=== PATIENT | male | born 1970 | race Two or more races ===

== ENCOUNTER 2024-04-06 13:06 | Outpatient (AMB) | payer MEDICAID, SELFPAY ==
--- NOTE | 2024-04-06 13:25 | ORTHONT_ITS ---
Vital signs 04/06/24 13:26 Height 1.73 m Height Method Stated Weight 110.336 kg Weight Measurement Method Standing Scale BMI 36.8 BP 135/80 H Blood Pressure Source Automatic Cuff Blood Pressure Location Left Upper Arm Position Sitting Respiration 19 Pulse 76 Pulse Source Monitor Temp 98.1 F Temp Source Temporal Artery Scan Pulse Oximetry (%) 94 L Oxygen Delivery Method Room Air Med/Allergies Allergies & Medications Allergies Penicillins Allergy (Severe, Verified 04/06/24 13:26) Rash Medication Reconciliation albuterol sulfate 90 mcg/actuation aerosol inhaler (Proventil HFA) 2 puff inhalation Q6HR PRN SHORTNESS OF BREATH #0 inhalations 08/04/15 [History Confirmed 04/06/24] benazepril 20 mg tablet 20 mg PO BID 08/04/18 [History Confirmed 04/06/24] fluticasone furoate 200 mcg-vilanterol 25 mcg/dose inhalation powder (Breo Ellipta) 1 inh inhalation QDAY 08/04/18 [History Confirmed 04/06/24] pantoprazole 40 mg tablet,delayed release 40 mg PO QDAY 08/04/18 [History Confirmed 04/06/24] atorvastatin 20 mg tablet 20 mg PO QDAY 12/12/23 [History Confirmed 04/06/24] carvedilol 6.25 mg tablet 6.25 mg PO BID 12/12/23 [History Confirmed 04/06/24] doxazosin 8 mg tablet 8 mg PO QDAY 12/12/23 [History Confirmed 04/06/24] meloxicam 7.5 mg tablet 7.5 mg PO QDAY #45 tabs 12/12/23 [Rx Confirmed 04/06/24] Exam Exam Patient is in no acute distress and is cooperative with the examination today. Breathing is nonlabored. Patient has a normal mood and affect. Bilateral extremities were evaluated and demonstrates sensation intact to light touch. Palpable pedal pulses are present. No significant edema is present. Bilateral hips were examined. The patient has no pain with log roll of the hips. Internal rotation to 30 degrees and external rotation to 30 degrees is painless. Negative FADIR. Left knee was examined today. The left knee is in reasonable alignment. Range of motion from 0-120 degrees. Knee is stable to varus and valgus as well as AP translation with <5mm. Patient has a negative McMurrays. There is no pain with patellofemoral compression and no crepitus noted. The knee is nontender to palpation. The right knee was also examined. The right knee is in [varus] alignment. Range of motion from [0-115] degrees. Knee is stable to varus and valgus as well as AP translation with <5mm. Patient has a [negative] McMurrays. There is [no] pain with patellofemoral compression and [no] crepitus noted. The knee is [tender] to palpation [medially]. Nonweightbearing x-rays were reviewed. This demonstrates mild to moderate arthritis. X-rays deferred demonstrates severe arthritis medially these are weightbearing x-rays from [facility] imaging Assessment and Plan Problem List (1) Arthritis of right knee: Status: Acute Plan: Patient is a pleasant 53-year-old male who presents today for evaluation of his right knee. He has significant medial right knee pain. X-rays demonstrate significant arthritis bilaterally. We discussed different treatment options. We discussed that he is on the younger side for a total knee replacement but that he is failed conservative treatment and thus we consider total knee replacement a reasonable option. He would like to start on the right. In addition, we discussed that we can do a left knee cortisone injection as this is the nonoperative side for now. Recommend knee cortisone injection as patient would like to proceed with conservative treatment at this time. The risks and benefits of the procedure were reviewed with the patient and patient gave verbal consent to continue with the procedure. Procedure: performed by Dr. Barrera Using sterile technique the left knee was thoroughly prepped with alcohol, and approximately 1 cc of Kenalog 40 mg/mL and 4 cc of 1% lidocaine was injected without resistance into the medial tibial femoral joint space. The patient tolerated the procedure. The nature and purpose of the total knee replacement, alternative method(s) of treatment, the material risks involved, and the possibility of complications were fully explained to the patient. The patient does NOT have any of the following contraindications to TKA: - Active infection of the knee joint, OR - Active systemic bacteremia, OR - Active skin infection or open wound at surgical site, OR - Neuropathic arthritis, OR - Severe, rapidly progressive neurological disease, OR - Severe medical condition that makes risks of surgery outweigh the potential benefit The patient was told the most common risks and complications associated with a total knee replacement include, but are not limited to: blood clots in the leg, fatal pulmonary embolism, dislocation of the prosthesis, intraoperative and postoperative fractures of the femur or tibia, infection, failure of the prosthesis or grafting materials, complications from anesthesia, reactions to blood transfusions, postoperative leg length inequality, instability of the knee replacement, nerve damage or injury, vascular injury, delayed wound healing, infection, other injury or even . In addition, there are risks associated with anesthesia given during this operation. Also, the patient was told that after undergoing a total knee replacement there may still be persistent pain or disability. The patient was informed that the success of this operation in part depends upon the mechanical devices which are going to be implanted and that these devices can fail or malfunction, and may need to be repaired or replaced and there are no guarantees as to the longevity of this device or its parts and that it or its parts could fail prematurely. The patient was also notified that during the course of surgery, there may be a need to use bone graft from donors, and that any bone graft used will be carefully screened for communicable diseases, including AIDS, hepatitis, Ozzie-Creutzfeldt, or other diseases, but despite the screening procedures, there is a small chance that they could contract one of these diseases. Finally, the patient was asked to follow completely and fully with all advice and recommended treatments, and that recovery and ultimate outcome are affected by their compliance with recommended treatment. We discussed the risks, benefits and treatment alternatives, and the patient is interested in proceeding with surgery. We will try to set this up as expeditiously as possible. Office Procedures GNS Level of Care Nursing/Assessment Patient Status: Established Patient Nursing Assessment/Reassesment: Medication Reconciliation, Update PMH in EMR and Vital Signs Coordination of Care: Complex Care and Chronic Disease 1-5, Education Complex Pt/Fam, Consent,records obtained, informed consent, Results/Orders obtained and Staff clarify orders Established Patient Charge Established Patient Point Assignment: 95 Established Patient Point Charge: EP Level 3 (80-115) Surgical Proc/IM SQ injection Major Surgical Procedure: Yes (LEFT KNEE INJECTION) Medication Given Medication Given Medication Given: Yes Documented Dose Given: 4 Route: Infiitration Office Meds Xylocaine 10 mg/mL (1 %) injection solution Performing Provider: Jose Luis Barrera MD Performing Location: [facility] Administered by: Jose Luis Barrera MD on 04/06/24 14:21 Dose Route Admin Location Dispensed Lot Number Expiration Date [facility] [employer] 20 mL Infiltration 20 mL [id number] 11/27/26 87797-125-45 [employer] triamcinolone acetonide 40 mg/mL suspension for injection Performing Provider: Jose Luis Barrera MD Performing Location: [facility] Administered by: Jose Luis Barrera MD on 04/06/24 14:21 Dose Route Admin Location Dispensed Lot Number Expiration Date [facility] [employer] Helper 40 mg Infiltration KNEE 1 mL [id number] 08/27/25 6938-3376-04 [employer]EVA PARENTERAL MA Intake Visit Data Collection New Patient or Established: Established Patient (seen at [facility] within 3 years) Reason for Visit:: 3 MONTH FOLLOW UP Seen by Clinical Staff ONLY (RN/MA): No Mission Support Specialist Required: No PCP or OBGYN visit in last 3 months: Yes Hx Now: No Do You Feel Safe at Home: Yes Authorities Contacted: N/A Questionairres Past Medical History Past Medical History Have you ever been diagnosed with any of the following: Neurological Problems Seizures: No Cardiology Problems Congestive Heart Failure: No Hypertension: Yes Respiratory Problems Chronic Obstructive Pulmonary Disease (COPD): No Asthma: Yes Sleep Apnea: No Smoking: No Smoking Exposure: No Stomache/Intestinal Problems Gastroesophageal Reflux Disease: Yes Genital/Urinary Problems Renal Disease: No Endocrine Problems Diabetes Mellitus Type 1: No Diabetes Mellitus Type 2: Yes Blood Problems Sickle Cell Disease: No Other Problems Hospitalization: Yes Shingles: No Falls: No Blood Transfusions: No Blood Transfusion Reaction: No Anesthesia Reactions: No Chemotherapy: No Radiation Therapy: No MRSA: No Chicken Pox: Yes Subjective Visit Visit for: follow up visit and knee Immunization / Flu Flu Vaccine in the Last 12 Months: No Flu Vaccine Exclusion Criteria: No Exclusion Criteria History of Present Illness Chief complaint: right knee pain Patient is a pleasant 53-year-old male who presents today for right greater than left knee pain. This is been ongoing for several years. He has tried ibuprofen and physical therapy currently. He has had 4 injections at this point and has tried meloxicam. The injections only last about 2 months at this point in time. The right knee. Significantly more than the left. He is also tried formal physical therapy. At this point in time he reports the pain is affecting his quality life and happiness Pain Pain level (0-10): 3 Pain location: inside (medial) Pain quality: aching Associated signs & symptoms: none Ambulatory data Ambulatory device: none Treatments Improvement with previous injections: Yes Improvement with PT: No Improvement with NSAIDS: no Review of Systems Review of Systems: All systems negative unless otherwise noted in HPI.
[2024-04-06 13:26] VITALS: BP 135/80; PULSE 76; RESP 19; TEMP 36.7; O2SAT 94; BMI 36.8
== END 2024-04-06 14:16 | disposition home or self-care (01) ==
LOC: HODSRG 13:06
PROVIDERS: PCP Physician Assistant; Referring Provider Physician Assistant; Supervising Provider Orthopaedic Surgery Adult Reconstructive Orthopaedic Surgery; Visit Provider Orthopaedic Surgery Adult Reconstructive Orthopaedic Surgery
DX: M17.0 Bilateral primary osteoarthritis of knee (principal); M25.562 Pain in left knee; M25.561 Pain in right knee; I10 Essential (primary) hypertension; E11.9 Type 2 diabetes mellitus without complications
CPT/HCPCS: 20610; 99213; J3301; J3490; G0463

== ENCOUNTER 2024-06-22 11:14 | Outpatient (AMB) | payer MEDICAID, SELFPAY ==
[2024-06-22 11:23] VITALS: BP 148/81; PULSE 82; RESP 18; TEMP 36.3; O2SAT 96; BMI 36.4
--- NOTE | 2024-06-22 11:23 | PD.ORTHCLVIS ---
Vital signs 06/22/24 11:23 Height 1.73 m Height Method Stated Weight 109.061 kg Weight Measurement Method Standing Scale BMI 36.4 BP 148/81 H Blood Pressure Source Automatic Cuff Blood Pressure Location Right Upper Arm Position Sitting Respiration 18 Pulse 82 Pulse Source Monitor Temp 97.4 F Temp Source Temporal Artery Scan Pulse Oximetry (%) 96 Oxygen Delivery Method Room Air Med/Allergies Allergies & Medications Allergies Penicillins Allergy (Severe, Verified 06/22/24 11:24) Rash Medication Reconciliation albuterol sulfate 90 mcg/actuation aerosol inhaler (Proventil HFA) 2 puff inhalation Q6HR PRN SHORTNESS OF BREATH #0 inhalations 08/04/15 [History Confirmed 06/22/24] benazepril 20 mg tablet 20 mg PO BID 08/04/18 [History Confirmed 06/22/24] fluticasone furoate 200 mcg-vilanterol 25 mcg/dose inhalation powder (Breo Ellipta) 1 inh inhalation QDAY 08/04/18 [History Confirmed 06/22/24] pantoprazole 40 mg tablet,delayed release 40 mg PO QDAY 08/04/18 [History Confirmed 06/22/24] atorvastatin 20 mg tablet 20 mg PO QDAY 12/12/23 [History Confirmed 06/22/24] carvedilol 6.25 mg tablet 6.25 mg PO BID 12/12/23 [History Confirmed 06/22/24] doxazosin 8 mg tablet 8 mg PO QDAY 12/12/23 [History Confirmed 06/22/24] meloxicam 7.5 mg tablet 7.5 mg PO QDAY #45 tabs 12/12/23 [Rx Confirmed 06/22/24] Exam Exam Patient is in no acute distress and is cooperative with the examination today. Breathing is nonlabored. Patient has a normal mood and affect. Bilateral extremities were evaluated and demonstrates sensation intact to light touch. Palpable pedal pulses are present. No significant edema is present. Bilateral hips were examined. The patient has no pain with log roll of the hips. Internal rotation to 30 degrees and external rotation to 30 degrees is painless. Negative FADIR. Left knee was examined today. The left knee is in reasonable alignment. Range of motion from 0-120 degrees. Knee is stable to varus and valgus as well as AP translation with <5mm. Patient has a negative McMurrays. There is no pain with patellofemoral compression and no crepitus noted. The knee is nontender to palpation. The right knee was also examined. The right knee is in [varus] alignment. Range of motion from [0-115] degrees. Knee is stable to varus and valgus as well as AP translation with <5mm. Patient has a [negative] McMurrays. There is [no] pain with patellofemoral compression and [no] crepitus noted. The knee is [tender] to palpation [medially]. Nonweightbearing x-rays were reviewed. This demonstrates mild to moderate arthritis. X-rays deferred demonstrates severe arthritis medially these are weightbearing x-rays from [facility] imaging Assessment and Plan Problem List (1) Arthritis of right knee: Status: Acute Plan: Patient is a pleasant 53-year-old male who presents today for evaluation of his right knee. He has significant medial right knee pain. X-rays demonstrate significant arthritis bilaterally. We discussed different treatment options. We discussed that he is on the younger side for a total knee replacement but that he is failed conservative treatment and thus we consider total knee replacement a reasonable option. He would like to start on the right. In addition, we discussed that we can do a left knee cortisone injection as this is the nonoperative side for now. Recommend knee cortisone injection as patient would like to proceed with conservative treatment at this time. The risks and benefits of the procedure were reviewed with the patient and patient gave verbal consent to continue with the procedure. Procedure: performed by Dr. Barrera Using sterile technique the left knee was thoroughly prepped with alcohol, and approximately 1 cc of Kenalog 40 mg/mL and 4 cc of 1% lidocaine was injected without resistance into the medial tibial femoral joint space. The patient tolerated the procedure. The nature and purpose of the total knee replacement, alternative method(s) of treatment, the material risks involved, and the possibility of complications were fully explained to the patient. The patient does NOT have any of the following contraindications to TKA: - Active infection of the knee joint, OR - Active systemic bacteremia, OR - Active skin infection or open wound at surgical site, OR - Neuropathic arthritis, OR - Severe, rapidly progressive neurological disease, OR - Severe medical condition that makes risks of surgery outweigh the potential benefit The patient was told the most common risks and complications associated with a total knee replacement include, but are not limited to: blood clots in the leg, fatal pulmonary embolism, dislocation of the prosthesis, intraoperative and postoperative fractures of the femur or tibia, infection, failure of the prosthesis or grafting materials, complications from anesthesia, reactions to blood transfusions, postoperative leg length inequality, instability of the knee replacement, nerve damage or injury, vascular injury, delayed wound healing, infection, other injury or even . In addition, there are risks associated with anesthesia given during this operation. Also, the patient was told that after undergoing a total knee replacement there may still be persistent pain or disability. The patient was informed that the success of this operation in part depends upon the mechanical devices which are going to be implanted and that these devices can fail or malfunction, and may need to be repaired or replaced and there are no guarantees as to the longevity of this device or its parts and that it or its parts could fail prematurely. The patient was also notified that during the course of surgery, there may be a need to use bone graft from donors, and that any bone graft used will be carefully screened for communicable diseases, including AIDS, hepatitis, Ozzie-Creutzfeldt, or other diseases, but despite the screening procedures, there is a small chance that they could contract one of these diseases. Finally, the patient was asked to follow completely and fully with all advice and recommended treatments, and that recovery and ultimate outcome are affected by their compliance with recommended treatment. We discussed the risks, benefits and treatment alternatives, and the patient is interested in proceeding with surgery. We will try to set this up as expeditiously as possible. Office Procedures GNS Level of Care Nursing/Assessment Patient Status: Established Patient Nursing Assessment/Reassesment: Medication Reconciliation, Update PMH in EMR and Vital Signs Coordination of Care: Complex Care and Chronic Disease 1-5, Education Complex Pt/Fam, Consent,records obtained, informed consent, Results/Orders obtained and Staff clarify orders Established Patient Charge Established Patient Point Assignment: 95 Established Patient Point Charge: EP Level 3 (80-115) MA Intake Visit Data Collection New Patient or Established: Established Patient (seen at [facility] within 3 years) Reason for Visit:: PRE OP RT TKA Seen by Clinical Staff ONLY (RN/MA): No Windmill Mechanic Required: No PCP or OBGYN visit in last 3 months: Yes Hx Now: No Do You Feel Safe at Home: Yes Authorities Contacted: N/A Questionairres Past Medical History Past Medical History Have you ever been diagnosed with any of the following: Neurological Problems Seizures: No Cardiology Problems Congestive Heart Failure: No Hypertension: Yes Respiratory Problems Chronic Obstructive Pulmonary Disease (COPD): No Asthma: Yes Sleep Apnea: No Smoking: No Smoking Cessation Counseling: No Smoking Exposure: No Stomache/Intestinal Problems Gastroesophageal Reflux Disease: Yes Genital/Urinary Problems Renal Disease: No Endocrine Problems Diabetes Mellitus Type 1: No Diabetes Mellitus Type 2: Yes Blood Problems Sickle Cell Disease: No Other Problems Hospitalization: Yes Shingles: No Falls: No Blood Transfusions: No Blood Transfusion Reaction: No Anesthesia Reactions: No Chemotherapy: No Radiation Therapy: No MRSA: No Chicken Pox: Yes Subjective Visit Visit for: follow up visit and knee (RT KNEE ) Immunization / Flu Flu Vaccine in the Last 12 Months: Yes Flu Vaccine Exclusion Criteria: Already Received History of Present Illness Chief complaint: right knee pain Patient is a pleasant 53-year-old male who presents today for right greater than left knee pain. This is been ongoing for several years. He has tried ibuprofen and physical therapy currently. He has had 4 injections at this point and has tried meloxicam. The injections only last about 2 months at this point in time. The right knee. Significantly more than the left. He has also tried formal physical therapy. At this point in time he reports the pain is affecting his quality life and happiness Pain Pain level (0-10): 8 Pain location: inside (medial) and outside (lateral) Pain quality: aching Pain timing: increases with activity Associated signs & symptoms: stiffness Ambulatory data Ambulatory device: none Treatments Number of previous injections: 1 Improvement with previous injections: No Number of Physical Therapy sessions: 0 Improvement with PT: No Improvement with NSAIDS: n/a Review of Systems Review of Systems: All systems negative unless otherwise noted in HPI.
== END 2024-06-22 11:39 | disposition home or self-care (01) ==
LOC: HODSRG 11:14
PROVIDERS: PCP Physician Assistant; Referring Provider Physician Assistant; Supervising Provider Orthopaedic Surgery Adult Reconstructive Orthopaedic Surgery; Visit Provider Orthopaedic Surgery Adult Reconstructive Orthopaedic Surgery
DX: M17.11 Unilateral primary osteoarthritis, right knee (principal); M25.561 Pain in right knee; M25.562 Pain in left knee; I10 Essential (primary) hypertension
CPT/HCPCS: 99213; G0463

== ENCOUNTER → 2024-06-22 | Outpatient (CLI) | payer MEDICAID, SELFPAY ==
--- NOTE | 2024-06-22 | XR_ITS ---
Examination: CT right lower extremity, without contrast. 2-D sagittal reconstructions. 2-D coronal reconstructions. 3-D reconstructions. Date and time of exam:June 22, 2024 1211 hours INDICATIONS: Diagnosis right knee pain unilateral osteoarthritis 2 years CTDI: vol (mGy):12.9 DLP: (mGycm):905 Technique: Multiple 1.25 mm axial sections of the right lower extremity without intravenous contrast have been obtained. 2-D sagittal and coronal reconstructions have been obtained. 3-D reconstructions have been obtained. Low dose protocols were performed. One or more of the following dose reduction techniques were used; automated exposure control, adjustment of the mA and/or KV according to patient size, use of iterative reconstruction technique. Findings: Moderate osteopenia Moderate narrowing right hip joint No right hip fracture or dislocation, no avascular necrosis Advanced right knee tricompartment osteoarthritis Severe narrowing medial joint space Chronic lateral subluxation patella at least 9 mm IMPRESSION: Advanced right knee tricompartment osteoarthritis
== END | disposition home or self-care (01) ==
PROVIDERS: PCP Physician Assistant; Referring Provider Physician Assistant; Visit Provider Orthopaedic Surgery Adult Reconstructive Orthopaedic Surgery
DX: M17.11 Unilateral primary osteoarthritis, right knee (principal)
CPT/HCPCS: 73700

== ENCOUNTER 2024-07-12 05:45 | Day surgery (SDC) | payer MEDICAID, SELFPAY ==
--- NOTE | 2024-07-07 06:00 | EKG_ITS ---
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
[2024-07-07 10:20] VITALS: BMI 35.7
[2024-07-07 12:30] LABS: Basophils % (Auto) 1 % (0-2.5); Eosinophils # (Auto) 0.1 Thou/mm3 (0.0-0.5); Eosinophils % (Auto) 1 % (0-10); Hemoglobin 15.1 g/dL (13.5-16.0); Immature Granulocytes % (Auto) 0 % (0-0); Immature Granulocytes Auto 0.01 Thou/mm3 (0.00-0.00); Lymphocytes # (Auto) 1.3 Thou/mm3 (1.0-4.8); Lymphocytes % (Auto) 25 % (10-50); Mean Corpuscular HGB Conc 33.6 g/dl (31.0-37.0); Mean Corpuscular Hemoglobin 30.3 pg (25.0-35.0); Mean Corpuscular Volume 90 fL (80-100); Monocytes # (Auto) 0.4 Thou/mm3 (0.0-0.8); Monocytes % (Auto) 8 % (0-12); Neutrophils # (Auto) 3.3 Thou/mm3 (1.8-7.7); Neutrophils % (Auto) 66 % (37-80); Nucleated Red Blood Cell % 0 /100 WBC (0); Platelet Count 112 Thou/mm3 (140-440); RDW Standard Deviation 43.8 fL (35.1-43.9); Red Blood Count 4.99 Miln/mm3 (4.50-5.90)
[2024-07-07 12:38] LABS: INR 1.1 (0.9-1.3); Partial Thromboplastin Time 28.4 Seconds (22.0-36.0); Prothrombin Time 12.3 Seconds (9.0-12.2)
[2024-07-07 12:39] LABS: Alanine Aminotransferase 37 U/L (10-49); Albumin, Serum 4.3 gm/dL (3.5-5.0); Albumin/Globulin Ratio 1.7 (1.2-2.2); Alkaline Phosphatase 62 U/L (46-116); Anion Gap 8 (7-16); Aspartate Amino Transferase 33 U/L (0-34); BUN/Creatinine Ratio 14 Ratio (12-20); Bilirubin,Total 0.8 mg/dL (0.3-1.2); Blood Urea Nitrogen 11 mg/dL (9-23); Calcium 9.4 mg/dL (8.3-10.6); Calcium (Corrected) 9.4 mg/dL (8.5-10.1); Carbon Dioxide 28.5 mMol/L (20.0-31.0); Chloride 108 mMol/L (98-107); Creatinine (Component) 0.8 mg/dL (0.6-1.3); Estimated Creatinine Clearance 124.9 mL/min (>60); Globulin 2.5 gm/dL (2.3-3.5); Glucose 68 mg/dL (74-106); Osmolality,Calculated 284 (275-295); Sodium 144 mMol/L (136-145); Total Protein 6.8 gm/dL (5.7-8.2); eGFR > 60 See Note
--- NOTE | 2024-07-09 15:26 | SUR.PREOP ---
History of brain aneurysm reviewed with Dr Leon.
[2024-07-12] VITALS (19 sets, daily range): BP systolic 118–158; BP diastolic 68–97; PULSE 50–91; RESP 12–20; TEMP 36.4–36.9; O2SAT 94–100; BMI 37.5
[2024-07-12] MEDS: ACETAMINOPHEN 325 MG TABLET 650 MG PO (06:41)
[2024-07-12] MEDS: PREGABALIN 75 MG CAPSULE PO (06:42)
[2024-07-12] MEDS: RINGERS LACTATED 1000 ML 1,000 ML 20 ML IV (06:44)
--- NOTE | 2024-07-12 09:15 | ESOP_ITS ---
Date of Procedure 07/12/24 Pre Op Diagnosis right knee osteoarthritis Post Op Diagnosis right knee osteoarthritis Procedure right total knee replacement Findings full thickness cartilage loss and osteophytes Procedure Description Indication: The patient is a 54 year old who has a long history of right knee pain. X-rays show degenerative arthritis involving the knee. Over the past several years the patient has had increasing pain, progressive limitation in function. He has failed conservative measures including activity modification, physical therapy, injections, anti-inflammatories, and assistive devices. After a lengthy discussion of the risks and benefits, the patient presents now for total knee replacement. The nature and purpose of the total knee replacement, alternative method(s) of treatment, the material risks involved, and the possibility of complications were fully explained to the patient. The patient was told the most common risks and complications associated with a total knee replacement include, but are not limited to blood clots in the leg, fatal pulmonary embolism, dislocation of the prosthesis, intraoperative and postoperative fractures of the femur or tibia, infection, failure of the prosthesis or grafting materials, complications from anesthesia, reactions to blood transfusions, postoperative leg length inequality, instability of the knee replacement, nerve damage or injury, vascular injury, delayed wound healing, infections, other injury or even . In addition, there are risks associated with anesthesia given during this operation, temporary or permanent numbness on the skin lateral to the incision can be a complication unique to total knee surgery, and kneeling can be painful after knee replacement surgery. Also, the patient was told that after undergoing a total knee replacement there may still be pain or disability. We discussed with the patient that we will be using a robot-assisted technology. We discussed that there is a possibility of converting to manual instrumentation. The patient was informed that the success of this operation in part depends upon the mechanical devices which are going to be implanted and that these devices can fail or malfunction, and may need to be repaired or replaced and there are no guarantees as to the longevity of this device or its part and that it or its parts could fail prematurely. Finally, the patient was asked to follow completely and fully with all advice and recommended treatments, and that recovery and ultimate outcome are affected by their compliance with recommended treatment. Surgical technique: Patient was marked and consented in the pre-operative area. The patient was brought to the operating room and placed on the operating table in a supine position. Prior to positioning, a timeout procedure was performed between the surgeon, the anesthesiologist, and the nursing staff where the patient and the operative side were identified and confirmed. After adequate general anesthetic was obtained, the right lower extremity was prepped and draped in the usual sterile fashion. A weight based dose of Cefazolin were administered within 1 hour prior to incision. The robot was preregistered and calirated before the incision. The extremity was exsanguinated with an esmarch badge and tourniquet inflated to 250mmHg. A midline incision was made. A median parapatellar arthrotomy was made. The patella was subluxed laterally. A medial release was performed to expose the medial tibia. His femoral and tibial pins were placed through an intra incisional manner for both cases. Every effort was made to ensure that the distalmost aspect of the pin was hung in the second cortex. The arrays were then tightened several times to ensure that it was fixed for the remainder of the case. Both femoral and tibial checkpoints were then placed. We then went through the registration process of the bone. We then assessed the knee deformity and attempted to correct it. We also used the robot to aid in judging laxity in both extension and flexion. Final based on laxity and alignment we changed the preoperative assessment to obtain proper proper implant positioning and to correct deformity. Attention was then placed to the tibia. We made a tibial cut using the robot ensuring that both the MCL and the patella tendon were protected with retractors. We then went to the femur and made the posterior cut followed by the anterior cut and the anterior chamfer. The bone was then removed and we made a distal femur cut and a posterior chamfer cut. We verified all cuts. A trial reduction was performed with a size 6 femoral component and a size 5 keeled tibial component. The patella tracked centrally, and no lateral retinacular release was necessary. The trial implants were removed. The arrays, pins, and checkpoints were all removed. We performed a verification that all pins were removed. The cut bone surfaces were lavaged. A size 6 right femoral component, a size 5 keeled tibial component were impacted into position. The knee was felt to be well balanced in the sagittal and coronal plane. The final [2x12] mm cruciate- substituting articular insert was impacted into the tibial tray. The knee was brought out to full extension, flexed up to 120 degrees. It was stable to varus and valgus stress and appropriately balanced in flexion and extension. The wounds were copiously irrigated following deflation of tourniquet. The medial retinaculum was reapproximated with #1 vicryl and quill. The subcutaneous tissues were closed with 0 and 2-0 interrupted Vicryl. The skin was closed with 3-0 Monofilament V loc suture. A sterile dressing was applied. The patient was transferred to a bed and brought to recovery in stable condition. The patient tolerated the procedure well. There were no intraoperative complications. Sponge and needle counts were correct times 2. As the attending surgeon, Maximus terrell I was present and performed the entire operation. Grafts/Implants Size 6 CR Femur Size 5 Tibia 11mm poly CS Anesthesia spinal Implants mike Pathology / specimen None Pathology comment: none Estimated Blood Loss 150 Disposition same day Surgeon Jose Luis Barrera MD Surgical Staff Operation Date: 07/12/24 07:30 Case Staff Anesthesiologist: Blair Gonzalez RN First Assistant: Shauna Campuzano
--- NOTE | 2024-07-12 09:37 | SUR.PHASEI ---
0941 Patient arrived to recovery resting comfortably in [facility], on oxygen 10L via oxy mask with an oral airway, patient has history of sleep apnea, obstructing-nasal airway place to right nares, to improve oxygenation for patient, vital signs stable, dressing intact to right knee; prineo, telfa, abd, webril, samantha wraps, no bleeding noted, bilateral dorsalis pedis pulses present when palpated, patient has good circulation to right lower extremity; skin color normal for patient, warm to touch, capillary refill is one second to right toes, report received from Dr. Gonzalez and Dayron RN/Nia VASQUEZ
[2024-07-12] MEDS: HYDROmorphone INJ 2 MG/ML VIAL 0.4 MG IV ×2 (10:24→10:34)
--- NOTE | 2024-07-12 10:28 | SUR.PHASEII ---
1028 Verbal order read-back received from Dr. Gonzalez; Oxycodone IR 10mg oral x1 dose, will enter order into EMR and administer to patient per order
--- NOTE | 2024-07-12 10:34 | SUR.PHASEII ---
1034 patient ate a jello, tolerated well
[2024-07-12] MEDS: oxyCODONE HCL 5 MG IR TAB 10 MG PO (10:36)
[2024-07-12] MEDS: MORPHINE SULF INJ 10 MG/ML VIAL 3 MG IV (10:56)
[2024-07-12] MEDS: DiphenhydrAMINE INJ 50 MG/ML VIAL 25 MG IVP (11:13)
--- NOTE | 2024-07-12 11:14 | XR_ITS ---
Examination: Right knee 2 views TECHNIQUE: AP lateral right knee 2 views Exam date and time: July 12, 2024 1116 hours INDICATIONS: Postop knee arthroplasty today FINDINGS: Moderate osteopenia. Total right knee arthroplasty. Satisfactory alignment. No fracture. IMPRESSION: Total right knee arthroplasty with satisfactory alignment
--- NOTE | 2024-07-12 11:20 | SUR.PHASEII ---
1120 XRAY complete per MD order
--- NOTE | 2024-07-12 11:30 | SUR.PHASEII ---
1056 Administered Morphine 3mg via IVP per anesthesia order 1103 Patients IV site appears red, vein is raised and patient is complaining of itching to left arm 1104 Dr. Gonzalez at bedside assessing patient, patient appears to have a reaction to Morphine, patient is awake and alert taking with MD, vital signs stable, unlabored breathing, verbal order read-back for Benadryl 25mg via IVP for local site reaction 1113 Medication administered per anesthesia order, will monitor patient 1125 Decreased redness noted to IV site, and patient denies itching 1130 Redness is gone and vein is not raised any longer, will monitor patient
--- NOTE | 2024-07-12 11:50 | SUR.PHASEII ---
1150 patients mother at bedside with patient
--- NOTE | 2024-07-12 11:57 | SUR.PHASEII ---
8049 patient shared he was ready for physical therapy, Juan Carlos PT called, PT unable to work with patient until 1300
--- NOTE | 2024-07-12 12:24 | SUR.PHASEII ---
pt awake, alert, able to follow commands, breathing unlabored, dressing to right lower extremity clean, dry, and intact, bilateral pedal pulses present and equal, circulation to bilateral toes WNL, report received from Brielle Orellana RN
--- NOTE | 2024-07-12 13:09 | SUR.PHASEII ---
Report to Brielle Orellana RN
--- NOTE | 2024-07-12 13:17 | SUR.PHASEII ---
1317 Patient shared he uses oxygen at home when he sleeps due to him having sleep apnea and he states that he can't wear a CPAP machine, patient encouraged to sleep with pillows and use the oxygen today when he sleeps due to his history of sleep apnea.
--- NOTE | 2024-07-12 13:41 | SUR.PHASEII ---
1349 Patient cleared by physical therapist Juan Carlos to proceed with discharge
--- NOTE | 2024-07-12 14:06 | SUR.PHASEII ---
1406 Patient meets discharge criteria from recovery, awake and alert, breathing unlabored, vital signs stable, per patient his pain is tolerable, dressing intact; no bleeding noted, denies nausea, patient voided several times prior to discharge, patient assisted with dressing into his clothing by this customs entry writer, discharge instructions given to patient and patients mother, mother signed discharge instructions. Patient given all his belongings prior to discharge, transported via wheelchair and left in a private vehicle.
== END 2024-07-12 14:06 | disposition home or self-care (01) ==
PROVIDERS: Anesthesiology; PCP Physician Assistant; Referring Provider Orthopaedic Surgery Adult Reconstructive Orthopaedic Surgery; Visit Provider Orthopaedic Surgery Adult Reconstructive Orthopaedic Surgery
PROC: (CPT 20985; principal; 2024-07-12 07:30)
DX: M17.11 Unilateral primary osteoarthritis, right knee (principal); Z01.810 Encounter for preprocedural cardiovascular examination; M25.761 Osteophyte, right knee
CPT/HCPCS: 20985; 27447; C1776; 36415; 73560; 80053; 85025; 85610; 85730; 93005; 97162; A4217; C1713; J0690; J1100; J1200; J1885; J2250; J2270; J2405; J2704; J2795; J3010; J3490; J7030; J7120; J7999; A4648; A4649; A9270; J1596

== ENCOUNTER 2024-07-27 13:18 | Outpatient (AMB) | payer MEDICAID, SELFPAY ==
[2024-07-27 13:28] VITALS: BP 167/80; PULSE 100; RESP 19; TEMP 36.6; O2SAT 94; BMI 36.1
--- NOTE | 2024-07-27 13:28 | PD.ORTHCLVIS ---
Vital signs 07/27/24 13:28 Height 1.73 m Height Method Stated Weight 108.012 kg Weight Measurement Method Standing Scale BMI 36.1 BP 167/80 H Blood Pressure Source Automatic Cuff Blood Pressure Location Right Upper Arm Position Sitting Respiration 19 Pulse 100 Pulse Source Monitor Temp 97.9 F Temp Source Temporal Artery Scan Pulse Oximetry (%) 94 L Oxygen Delivery Method Room Air Med/Allergies Allergies & Medications Allergies Penicillins Allergy (Severe, Verified 07/27/24 13:30) Rash clindamycin Allergy (Mild, Verified 07/27/24 13:30) Rash morphine Allergy (Mild, Verified 07/27/24 13:30) itching, redness to site meloxicam Adverse Reaction (Intermediate, Verified 07/27/24 13:30) Chest Pain Medication Reconciliation albuterol sulfate 90 mcg/actuation aerosol inhaler (Proventil HFA) 2 puff inhalation Q6HR PRN SHORTNESS OF BREATH #0 inhalations 08/04/15 [History Confirmed 07/27/24] benazepril 20 mg tablet 20 mg PO BID 08/04/18 [History Confirmed 07/27/24] fluticasone furoate 200 mcg-vilanterol 25 mcg/dose inhalation powder (Breo Ellipta) 1 inh inhalation QDAY 08/04/18 [History Confirmed 07/27/24] pantoprazole 40 mg tablet,delayed release 40 mg PO QDAY 08/04/18 [History Confirmed 07/27/24] carvedilol 6.25 mg tablet 6.25 mg PO BID 12/12/23 [History Confirmed 07/27/24] doxazosin 8 mg tablet 8 mg PO QDAY 12/12/23 [History Confirmed 07/27/24] atorvastatin 10 mg tablet 10 mg PO DAILY 07/07/24 [History Confirmed 07/27/24] gabapentin 100 mg capsule 100 mg PO DAILY 07/07/24 [History Confirmed 07/27/24] acetaminophen 500 mg tablet (Acetaminophen Extra Strength) 1,000 mg (2 x 500 mg) PO Q6H PRN pain #90 tabs 07/12/24 [Rx Confirmed 07/27/24] aspirin 81 mg tablet,delayed release 81 mg PO BID #60 tabs 07/12/24 [Rx Confirmed 07/27/24] doxycycline hyclate 100 mg tablet 100 mg PO BID #14 tabs 07/12/24 [Rx Confirmed 07/27/24] gabapentin 300 mg capsule 300 mg PO .qhs #30 caps 07/12/24 [Rx Confirmed 07/27/24] sennosides 8.6 mg-docusate sodium 50 mg tablet (Senna-S) 1 tab-cap PO QDAY #30 tabs 07/12/24 [Rx Confirmed 07/27/24] oxycodone 5 mg tablet 5 mg PO Q6H PRN pain #28 tabs 07/19/24 [Rx Confirmed 07/27/24] Exam Exam Patient is in no acute distress and is cooperative with the examination today. Breathing is nonlabored. Patient has a normal mood and affect. Bilateral extremities were evaluated and demonstrates sensation intact to light touch. Palpable pedal pulses are present. No significant edema is present. Bilateral hips were examined. The patient has no pain with log roll of the hips. Internal rotation to 30 degrees and external rotation to 30 degrees is painless. Negative FADIR. Left knee was examined today. The left knee is in reasonable alignment. Range of motion from 0-120 degrees. Knee is stable to varus and valgus as well as AP translation with <5mm. Patient has a negative McMurrays. There is no pain with patellofemoral compression and no crepitus noted. The knee is nontender to palpation. Right knee incision is clean dry intact Assessment and Plan Problem List (1) Arthritis of right knee: Status: Acute Plan Patient is doing well status post right total knee replacement. He would like an injection in the left knee. Recommend knee cortisone injection as patient would like to proceed with conservative treatment at this time. The risks and benefits of the procedure were reviewed with the patient and patient gave verbal consent to continue with the procedure. Procedure: performed by Dr. Barrera Using sterile technique the left knee was thoroughly prepped with alcohol, and approximately 1 cc of Kenalog 40 mg/mL and 4 cc of 1% lidocaine was injected without resistance into the medial tibial femoral joint space. The patient tolerated the procedure. Office Procedures GNS Level of Care Nursing/Assessment Patient Status: Established Patient Nursing Assessment/Reassesment: Medication Reconciliation, Update PMH in EMR and Vital Signs Coordination of Care: Complex Care and Chronic Disease 1-5, Education Complex Pt/Fam, Consent,records obtained, informed consent, 1 Ins Authorization, Lab and Imaging orders, Results/Orders obtained and Staff clarify orders Established Patient Charge Established Patient Point Assignment: 125 Established Patient Point Charge: EP Level 3 (80-115) Surgical Proc/IM SQ injection Major Surgical Procedure: Yes (KNEE INJECTION) Medication Given Medication Given Medication Given: Yes Documented Dose Given: 4 Route: Infiitration Medication Given Medication Given Medication Given: Yes Documented Dose Given: 1 Route: Infiitration Office Meds Xylocaine 10 mg/mL (1 %) injection solution Performing Provider: Jose Luis Barrera MD Performing Location: [facility] Administered by: Jose Luis Barrera MD on 07/27/24 13:48 Dose Route Admin Location Dispensed Lot Number Expiration Date [facility] Record Press Supervisor 20 mL Infiltration 20 mL [id number] 09/28/27 07643-571-16 [facility] triamcinolone acetonide 40 mg/mL suspension for injection Performing Provider: Jose Luis Barrera MD Performing Location: [facility] Administered by: Jose Luis Barrera MD on 07/27/24 13:48 Dose Route Admin Location Dispensed Lot Number Expiration Date [facility] Record Press Supervisor 40 mg intra-articular KNEE 1 mL [id number] 01/27/26 1245-0001-29 TEVA PARENTERAL MA Intake Visit Data Collection New Patient or Established: Established Patient (seen at [facility] within 3 years) Reason for Visit:: 2 WEEL POST OP Seen by Clinical Staff ONLY (RN/MA): No Verbal consent obtained for Telemed visit?: No Core Dropper Required: No PCP or OBGYN visit in last 3 months: Yes Hx Now: No Do You Feel Safe at Home: Yes Authorities Contacted: N/A Questionairres Past Medical History Past Medical History Have you ever been diagnosed with any of the following: Neurological Problems Seizures: No Cardiology Problems Hypercholesterolemia: Yes Congestive Heart Failure: No Hypertension: Yes Varicose Veins: Yes Respiratory Problems Chronic Obstructive Pulmonary Disease (COPD): No Asthma: Yes Sleep Apnea: Yes (not using CPAP) Smoking: No Smoking Cessation Counseling: No Smoking Exposure: No Stomache/Intestinal Problems Gastroesophageal Reflux Disease: Yes Obesity: Yes Genital/Urinary Problems Renal Disease: No Musculoskeletal Problems Arthritis: Yes Endocrine Problems Diabetes Mellitus Type 1: No Diabetes Mellitus Type 2: Yes (not taking meds anymore lost 140 lbs) Blood Problems Sickle Cell Disease: No Other Problems Hospitalization: Yes (brain aneurysm) Shingles: No Falls: No Blood Transfusions: No Blood Transfusion Reaction: No Anesthesia Reactions: No Chemotherapy: No Radiation Therapy: No MRSA: No Chicken Pox: Yes Cancer: No Subjective Visit Visit for: follow up visit, post op #1 and knee Immunization / Flu Flu Vaccine in the Last 12 Months: No Flu Vaccine Exclusion Criteria: No Exclusion Criteria History of Present Illness Chief complaint: 2 WEEK POST OP TKA Patient is a 54-year-old male status post right total knee replacement. He is doing well. He would like a left knee injection Personal History Occupation: DISABLED Red flag PMH: BMI BMI Counceling provided: Yes Pain Pain level (0-10): 6 Pain duration: ALL DAY Pain location: anterior Pain quality: dull and aching Pain timing: increases with activity and stairs Ambulatory data Ambulatory device: walker Treatments Improvement with previous injections: No Improvement with PT: No Improvement with NSAIDS: no Review of Systems Review of Systems: All systems negative unless otherwise noted in HPI.
== END 2024-07-27 13:52 | disposition home or self-care (01) ==
LOC: HODSRG 13:18
PROVIDERS: PCP Internal Medicine Infectious Disease; Referring Provider Internal Medicine Infectious Disease; Supervising Provider Orthopaedic Surgery Adult Reconstructive Orthopaedic Surgery; Visit Provider Orthopaedic Surgery Adult Reconstructive Orthopaedic Surgery
DX: M17.11 Unilateral primary osteoarthritis, right knee (principal); Z96.651 Presence of right artificial knee joint; E78.00 Pure hypercholesterolemia, unspecified; I10 Essential (primary) hypertension; G47.30 Sleep apnea, unspecified
CPT/HCPCS: 20610; 99213; J3301; J3490; G0463

== ENCOUNTER 2024-08-26 11:00 | Outpatient (RCR) | payer MEDICAID, SELFPAY ==
--- NOTE | 2024-08-10 13:41 | PTNOTE_ITS ---
PT OP Initial Eval Patient Information Outpatient Physical Therapy Treatment Date: 08/10/24 Visit Reasons: RT TKA Medical Diagnosis: Z96.651 Treatment Dx #1: R knee pain Start of Care: 08/10/24 Date of Onset: 07/12/24 Smoking Status Smoking Status: Never smoker Initial Assessment Subjective: Pt is 54 yr old male s/p R TKA ambulates without assistive device and reports pain at night and with ambulating longer distances. Pt feels limited with HH chores and lifting things. PMH: cerebral aneurysm 2005, HTN, allergies, deviated septum Pt goal: to get rid of the pain and walk further Objective: R knee ArOM: Extension: -5 deg Flexion: 111 deg SLR: 65 deg with extensor lag Strength: Quads: 4-/5 HS: 4-5 Gait: symmetrical pattern with some lateral sway Assessment: Pt presents with decreased ROM and strength of R knee s/p TKA. Pt requires skilled therapy to meet goals and has good rehab potential. 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 Ind with HEP 2. Improved R knee ROM to full extension and 115 deg flexion 3. Improved strength to 4/5 quads and HS 4. Pt will ambulate community distances with symmetrical pattern Treatment Plan ? 1. Manual therapy ? 2. Therex ? 3. Modalities as indicated, moist heat, ice, estim Frequency and Duration: 2x a week for 18 visits. Will need more auth to continue past 12 visits Certification Dates: 08/10/24 to 11/09/24 Procedure Charges OP PT Eval Mod Complex 30 minutes: Yes
--- NOTE | 2024-08-12 18:29 | PT.ODAYNRPT ---
PT Outpatient Daily Note OP Daily Note Outpatient Physical Therapy Treatment Date: 08/12/24 Visit Reasons: RT TKA Subjective: Same as time of eval Objective: See F/s for therex Assessment: Improved extension ROM after Rx today with gait Plan: Continue per POC Length of Time (minutes) of Treatment: 30 Minutes Procedure Charges Therapeutic Exercise 30 minutes: Yes
--- NOTE | 2024-08-17 15:50 | PT.ODAYNRPT ---
PT Outpatient Daily Note OP Daily Note Outpatient Physical Therapy Treatment Date: 08/17/24 Visit Reasons: RT TKA Subjective: Doing HEP and walking with some R knee pain Objective: See F/s for therex Assessment: Improved extension ROM after Rx today with gait to almost symmetrical with the L. Plan: Continue per POC Length of Time (minutes) of Treatment: 30 Minutes Procedure Charges Therapeutic Exercise 30 minutes: Yes
--- NOTE | 2024-08-19 14:16 | PT.ODAYNRPT ---
PT Outpatient Daily Note OP Daily Note Outpatient Physical Therapy Treatment Date: 08/19/24 Visit Reasons: RT TKA Subjective: Pt reports knee is doing ok, content with the was knee is progressing. Objective: Please see flow sheet for ther ex list. Assessment: Pt tolerates interventions well, minimal soreness. Plan: Continue with POc. Length of Time (minutes) of Treatment: 30 Minutes Procedure Charges Therapeutic Exercise 30 minutes: Yes
--- NOTE | 2024-08-26 13:11 | PT.ODAYNRPT ---
PT Outpatient Daily Note OP Daily Note Outpatient Physical Therapy Treatment Date: 08/26/24 Visit Reasons: RT TKA Subjective: Pt reports overall progress with knee although today feels a little stiff. Objective: Please see flow sheet for ther ex list. Assessment: Progressing interventions per post op protocol, pt tolerated well. Plan: Continue with POC. Length of Time (minutes) of Treatment: 30 Minutes Procedure Charges Therapeutic Exercise 30 minutes: Yes
== END 2024-08-28 23:59 | disposition home or self-care (01) ==
LOC: CPTX 11:00
PROVIDERS: PCP Physician Assistant; Referring Provider Orthopaedic Surgery Adult Reconstructive Orthopaedic Surgery; Visit Provider Orthopaedic Surgery Adult Reconstructive Orthopaedic Surgery
DX: M25.561 Pain in right knee (principal); Z96.651 Presence of right artificial knee joint; I10 Essential (primary) hypertension
CPT/HCPCS: 97110; 97162

== ENCOUNTER 2024-08-31 13:31 | Outpatient (AMB) | payer MEDICAID, SELFPAY ==
[2024-08-31 13:51] VITALS: BP 164/76; PULSE 76; RESP 19; TEMP 36.8; O2SAT 95; BMI 41.3
--- NOTE | 2024-08-31 13:51 | PD.ORTHCLVIS ---
Vital signs 08/31/24 13:51 Height 1.73 m Height Method Stated Weight 123.831 kg Weight Measurement Method Standing Scale BMI 41.3 BP 164/76 H Blood Pressure Source Automatic Cuff Blood Pressure Location Left Upper Arm Position Sitting Respiration 19 Pulse 76 Pulse Source Monitor Temp 98.2 F Temp Source Temporal Artery Scan Pulse Oximetry (%) 95 Oxygen Delivery Method Room Air Med/Allergies Allergies & Medications Allergies Penicillins Allergy (Severe, Verified 08/31/24 13:52) Rash clindamycin Allergy (Mild, Verified 08/31/24 13:52) Rash morphine Allergy (Mild, Verified 08/31/24 13:52) itching, redness to site meloxicam Adverse Reaction (Intermediate, Verified 08/31/24 13:52) Chest Pain Medication Reconciliation albuterol sulfate 90 mcg/actuation aerosol inhaler (Proventil HFA) 2 puff inhalation Q6HR PRN SHORTNESS OF BREATH #0 inhalations 08/04/15 [History Confirmed 08/31/24] benazepril 20 mg tablet 20 mg PO BID 08/04/18 [History Confirmed 08/31/24] fluticasone furoate 200 mcg-vilanterol 25 mcg/dose inhalation powder (Breo Ellipta) 1 inh inhalation QDAY 08/04/18 [History Confirmed 08/31/24] pantoprazole 40 mg tablet,delayed release 40 mg PO QDAY 08/04/18 [History Confirmed 08/31/24] carvedilol 6.25 mg tablet 6.25 mg PO BID 12/12/23 [History Confirmed 08/31/24] doxazosin 8 mg tablet 8 mg PO QDAY 12/12/23 [History Confirmed 08/31/24] atorvastatin 10 mg tablet 10 mg PO DAILY 07/07/24 [History Confirmed 08/31/24] gabapentin 100 mg capsule 100 mg PO DAILY 07/07/24 [History Confirmed 08/31/24] aspirin 81 mg tablet,delayed release 81 mg PO BID #60 tabs 07/12/24 [Rx Confirmed 08/31/24] doxycycline hyclate 100 mg tablet 100 mg PO BID #14 tabs 07/12/24 [Rx Confirmed 08/31/24] gabapentin 300 mg capsule 300 mg PO .qhs #30 caps 07/12/24 [Rx Confirmed 08/31/24] sennosides 8.6 mg-docusate sodium 50 mg tablet (Senna-S) 1 tab-cap PO QDAY #30 tabs 07/12/24 [Rx Confirmed 08/31/24] acetaminophen 500 mg tablet (Acetaminophen Extra Strength) 1,000 mg (2 x 500 mg) PO Q6H PRN pain #90 tabs 08/31/24 [Rx] oxycodone 5 mg tablet 5 mg PO Q6H PRN pain #28 tabs 08/31/24 [Rx] Exam Exam Patient is in no acute distress and is cooperative with the examination today. Breathing is nonlabored. Patient has a normal mood and affect. Bilateral extremities were evaluated and demonstrates sensation intact to light touch. Palpable pedal pulses are present. No significant edema is present. Bilateral hips were examined. The patient has no pain with log roll of the hips. Internal rotation to 30 degrees and external rotation to 30 degrees is painless. Negative FADIR. Left knee was examined today. The left knee is in reasonable alignment. Range of motion from 0-120 degrees. Knee is stable to varus and valgus as well as AP translation with <5mm. Patient has a negative McMurrays. There is no pain with patellofemoral compression and no crepitus noted. The knee is nontender to palpation. Right knee incision is clean dry intact. ROM is 0-110 Assessment and Plan Problem List (1) Arthritis of right knee: Status: Acute Plan Patient is doing well status post right total knee replacement. He is doing well status post right total knee replacement. We will see him in 6 to 8 weeks with new x-rays Office Procedures GNS Level of Care Nursing/Assessment Patient Status: Established Patient Nursing Assessment/Reassesment: Medication Reconciliation, Update PMH in EMR and Vital Signs Coordination of Care: Complex Care and Chronic Disease 1-5, Education Complex Pt/Fam, Consent,records obtained, informed consent, Results/Orders obtained and Staff clarify orders Established Patient Charge Established Patient Point Assignment: 95 Established Patient Point Charge: EP Level 3 (80-115) MA Intake Visit Data Collection New Patient or Established: Established Patient (seen at [facility] within 3 years) Reason for Visit:: FOLLOW UP Seen by Clinical Staff ONLY (RN/MA): No Verbal consent obtained for Telemed visit?: No Director Of Employee Development Required: No PCP or OBGYN visit in last 3 months: Yes Hx Now: No Do You Feel Safe at Home: Yes Authorities Contacted: N/A Questionairres Past Medical History Past Medical History Have you ever been diagnosed with any of the following: Neurological Problems Seizures: No Cardiology Problems Hypercholesterolemia: Yes Congestive Heart Failure: No Hypertension: Yes Varicose Veins: Yes Respiratory Problems Chronic Obstructive Pulmonary Disease (COPD): No Asthma: Yes Sleep Apnea: Yes (not using CPAP) Smoking: No Smoking Cessation Counseling: No Smoking Exposure: No Stomache/Intestinal Problems Gastroesophageal Reflux Disease: Yes Obesity: Yes Genital/Urinary Problems Renal Disease: No Musculoskeletal Problems Arthritis: Yes Endocrine Problems Diabetes Mellitus Type 1: No Diabetes Mellitus Type 2: Yes (not taking meds anymore lost 140 lbs) Blood Problems Sickle Cell Disease: No Other Problems Hospitalization: Yes (brain aneurysm) Shingles: No Falls: No Blood Transfusions: No Blood Transfusion Reaction: No Anesthesia Reactions: No Chemotherapy: No Radiation Therapy: No MRSA: No Chicken Pox: Yes Cancer: No Subjective Visit Visit for: follow up visit and knee Immunization / Flu Flu Vaccine in the Last 12 Months: No Flu Vaccine Exclusion Criteria: No Exclusion Criteria History of Present Illness Chief complaint: 6 WEEK POST OP TKA Patient is a 54-year-old male status post right total knee replacement. He is doing well. Personal History Occupation: DISABLED Red flag PMH: BMI BMI Counceling provided: Yes Pain Pain level (0-10): 3 Pain duration: ON AND OFF Pain location: anterior Pain quality: aching Pain timing: increases with activity and stairs Associated signs & symptoms: none Ambulatory data Ambulatory device: none Treatments Improvement with previous injections: No Improvement with PT: No Improvement with NSAIDS: no Review of Systems Review of Systems: All systems negative unless otherwise noted in HPI.
--- NOTE | 2024-08-31 13:58 | XR_ITS ---
Examination: Bilateral knees 2 views Right lateral knee left lateral knee 2 views Bilateral axial knees single view TECHNIQUE: Bilateral AP knees standing single view, bilateral PA knees standing single view flexion Standing right lateral knee left lateral knee 2 views Bilateral axial knees single view Date and time: August 31, 2024 1404 hours Comparison right knee July 12, 2024 INDICATIONS: Right knee replacement 6 weeks ago left knee pain 2 years. FINDINGS: Mild osteopenia Total right knee arthroplasty. Satisfactory alignment. No loosening of the prosthetic components Moderate narrowing cartilage posterior surface right patella Advanced narrowing medial joint space left knee Significant osteoarthritis left patellofemoral joint IMPRESSION: Advanced narrowing medial joint space left knee Significant osteoarthritis left patellofemoral joint
== END 2024-08-31 14:00 | disposition home or self-care (01) ==
LOC: HODSRG 13:31
PROVIDERS: PCP Physician Assistant; Referring Provider Physician Assistant; Supervising Provider Orthopaedic Surgery Adult Reconstructive Orthopaedic Surgery; Visit Provider Orthopaedic Surgery Adult Reconstructive Orthopaedic Surgery
DX: M17.11 Unilateral primary osteoarthritis, right knee (principal); Z96.651 Presence of right artificial knee joint; I10 Essential (primary) hypertension; E78.00 Pure hypercholesterolemia, unspecified; K21.9 Gastro-esophageal reflux disease without esophagitis; E11.9 Type 2 diabetes mellitus without complications
CPT/HCPCS: 73564; 99213; G0463

== ENCOUNTER 2024-09-27 09:30 | Outpatient (RCR) | payer MEDICAID, SELFPAY ==
--- NOTE | 2024-08-30 14:13 | PT.ODAYNRPT ---
PT Outpatient Daily Note OP Daily Note Outpatient Physical Therapy Treatment Date: 08/30/24 Visit Reasons: RT Tka Subjective: Doing HEP and walking with some R knee pain Objective: See F/s for therex Assessment: Improved extension ROM after Rx today with gait to almost symmetrical with the L. Plan: Continue per POC Length of Time (minutes) of Treatment: 30 Minutes Procedure Charges Therapeutic Exercise 30 minutes: Yes
--- NOTE | 2024-09-02 11:07 | PT.ODAYNRPT ---
PT Outpatient Daily Note OP Daily Note Outpatient Physical Therapy Treatment Date: 09/02/24 Visit Reasons: RT Tka Subjective: Doing HEP and walking with some R knee pain Objective: See F/s for therex Assessment: Improved extension ROM after Rx today to full. Plan: Continue per POC Length of Time (minutes) of Treatment: 30 Minutes Procedure Charges Therapeutic Exercise 30 minutes: Yes
--- NOTE | 2024-09-08 13:31 | PT.ODAYNRPT ---
PT Outpatient Daily Note OP Daily Note Outpatient Physical Therapy Treatment Date: 09/08/24 Visit Reasons: RT Tka Subjective: Pt reports R knee is doing better. Objective: Please see flow sheet for ther ex list. Assessment: Pt presents in clinic with improved gait, ROM continues to improve. Plan: Continue with POC. Length of Time (minutes) of Treatment: 30 Minutes Procedure Charges Therapeutic Exercise 30 minutes: Yes
--- NOTE | 2024-09-10 14:12 | PT.ODAYNRPT ---
PT Outpatient Daily Note OP Daily Note Outpatient Physical Therapy Treatment Date: 09/10/24 Visit Reasons: RT Tka Subjective: Pt reports R knee is doing better, still feels like knee is swollen. Objective: Please see flow sheet for ther ex list. Assessment: Added TKE, pt completed with good mechanics, no complaints. Applied cold pack at end of session. Plan: Continue with POC. Procedure Charges Therapeutic Exercise 30 minutes: Yes
--- NOTE | 2024-09-13 14:14 | PT.ODAYNRPT ---
PT Outpatient Daily Note OP Daily Note Outpatient Physical Therapy Treatment Date: 09/13/24 Visit Reasons: RT Tka Subjective: Pt reports R knee is doing better. Objective: Please see flow sheet for ther ex list. Assessment: Progressing interventions per post op protocol. Plan: Continue with pOC. Length of Time (minutes) of Treatment: 30 Minutes Procedure Charges Therapeutic Exercise 30 minutes: Yes
--- NOTE | 2024-09-15 15:55 | PT.ODAYNRPT ---
PT Outpatient Daily Note OP Daily Note Outpatient Physical Therapy Treatment Date: 09/15/24 Visit Reasons: RT Tka Subjective: Pt reports R knee is doing better, notices movement has improved and notices pain has reduced. Objective: Please see flow sheet for ther ex list. Assessment: Pt ROM continues to improve, incorporating balance interventions. Plan: Add balance exercises. Length of Time (minutes) of Treatment: 30 Minutes Procedure Charges Therapeutic Exercise 30 minutes: Yes
--- NOTE | 2024-09-24 11:22 | PT.ODAYNRPT ---
PT Outpatient Daily Note OP Daily Note Outpatient Physical Therapy Treatment Date: 09/24/24 Visit Reasons: RT Tka Subjective: Pt reports knee is moving better but still has pain and does not feel strength is where he would like. Objective: Please see flow sheet for ther ex list. R knee AROM 0-121 deg. Assessment: Pt has met ROM rehab goal as indicated by above measurements. Plan: Continue with pOC. Length of Time (minutes) of Treatment: 30 Minutes Procedure Charges Therapeutic Exercise 30 minutes: Yes
--- NOTE | 2024-09-27 10:00 | PT.ODS1RPT ---
PT OP Progress/Discharge Note Date of Service: 09/27/24 Progress Note/DC Note Progress Note/Discharge Note: DC Note Patient Information Visit Reasons: RT Tka Service Continue Service or Discharge: Discharge Discharge Date: 09/27/24 Status Subjective: Overall better, ready to D/C from therapy Objective: R knee AROM: Flexion: 120 deg Extension: full SLR: 65 deg Strength: Quads: 4/5 HS: 4/5 Gait: symmetrical Squat: to 50% depth x15 Assessment: Pt attended / visits with good progress to meet all therapy goals. Pt has improved ROM to full extension and flexion to 120 deg and strength to 4/5 to meet those goals. He is ambulating community distances to meet that goal and can squat without significant pain. Gave updated HEP printout. Plan: D/C with HEP Procedure Charges Therapeutic Exercise 30 minutes: Yes
== END 2024-09-27 23:59 | disposition home or self-care (01) ==
LOC: CPTX 09:30
PROVIDERS: PCP Orthopaedic Surgery Adult Reconstructive Orthopaedic Surgery; Referring Provider Orthopaedic Surgery Adult Reconstructive Orthopaedic Surgery; Visit Provider Orthopaedic Surgery Adult Reconstructive Orthopaedic Surgery
DX: M25.561 Pain in right knee (principal); Z96.651 Presence of right artificial knee joint; I10 Essential (primary) hypertension
CPT/HCPCS: 97110

== ENCOUNTER 2024-10-26 13:50 | Outpatient (AMB) | payer MEDICAID, SELFPAY ==
--- NOTE | 2024-10-26 13:54 | ORTHONT_ITS ---
Vital signs 10/26/24 13:56 Height 1.73 m Height Method Stated Weight 108.891 kg Weight Measurement Method Standing Scale BMI 36.3 BP 132/81 H Blood Pressure Source Automatic Cuff Blood Pressure Location Left Upper Arm Position Sitting Respiration 18 Pulse 75 Pulse Source Monitor Temp 98.3 F Temp Source Temporal Artery Scan Pulse Oximetry (%) 95 Oxygen Delivery Method Room Air Med/Allergies Allergies & Medications Allergies Penicillins Allergy (Severe, Verified 10/26/24 13:55) Rash clindamycin Allergy (Mild, Verified 10/26/24 13:55) Rash morphine Allergy (Mild, Verified 10/26/24 13:55) itching, redness to site meloxicam Adverse Reaction (Intermediate, Verified 10/26/24 13:55) Chest Pain Medication Reconciliation albuterol sulfate 90 mcg/actuation aerosol inhaler (Proventil HFA) 2 puff inhalation Q6HR PRN SHORTNESS OF BREATH #0 inhalations 08/04/15 [History Confirmed 10/26/24] benazepril 20 mg tablet 20 mg PO BID 08/04/18 [History Confirmed 10/26/24] fluticasone furoate 200 mcg-vilanterol 25 mcg/dose inhalation powder (Breo Ellipta) 1 inh inhalation QDAY 08/04/18 [History Confirmed 10/26/24] pantoprazole 40 mg tablet,delayed release 40 mg PO QDAY 08/04/18 [History Conf irmed 10/26/24] carvedilol 6.25 mg tablet 6.25 mg PO BID 12/12/23 [History Confirmed 10/26/24] doxazosin 8 mg tablet 8 mg PO QDAY 12/12/23 [History Confirmed 10/26/24] atorvastatin 10 mg tablet 10 mg PO DAILY 07/07/24 [History Confirmed 10/26/24] doxycycline hyclate 100 mg tablet 100 mg PO BID #14 tabs 07/12/24 [Rx Confirmed 10/26/24] gabapentin 300 mg capsule 300 mg PO .qhs #30 caps 07/12/24 [Rx Confirmed 10/26/24] sennosides 8.6 mg-docusate sodium 50 mg tablet (Senna-S) 1 tab-cap PO QDAY #30 tabs 07/12/24 [Rx Confirmed 10/26/24] acetaminophen 500 mg tablet (Acetaminophen Extra Strength) 1,000 mg (2 x 500 mg) PO Q6H PRN pain #90 tabs 08/31/24 [Rx Confirmed 10/26/24] oxycodone 5 mg tablet 5 mg PO Q6H PRN pain #28 tabs 08/31/24 [Rx Confirmed 10/26/24] Exam Exam Patient is in no acute distress and is cooperative with the examination today. Breathing is nonlabored. Patient has a normal mood and affect. Bilateral extremities were evaluated and demonstrates sensation intact to light touch. Palpable pedal pulses are present. No significant edema is present. Bilateral hips were examined. The patient has no pain with log roll of the hips. Internal rotation to 30 degrees and external rotation to 30 degrees is painless. Negative FADIR. Left knee was examined today. The left knee is in reasonable alignment. Range of motion from 0-120 degrees. Knee is stable to varus and valgus as well as AP translation with <5mm. Patient has a negative McMurrays. There is no pain with patellofemoral compression and no crepitus noted. The knee is nontender to palpation. Right knee incision is clean dry intact. ROM is 0-110 X-rays from 08/31/2024 demonstrates a right total knee replacement in alignment position. The left knee demonstrates complete obliteration of the medial joint space Assessment and Plan Problem List (1) Arthritis of right knee: Status: Acute Plan Patient is doing well status post right total knee replacement. He is doing well status post right total knee replacement. He would like a cortisone injection of his left knee. He has [id number] arthritis and we discussed that this is reasonable Recommend knee cortisone injection as patient would like to proceed with conservative treatment at this time. The risks and benefits of the procedure were reviewed with the patient and patient gave verbal consent to continue with the procedure. Procedure: performed by Dr. Barrera Using sterile technique the left knee was thoroughly prepped with alcohol, and approximately 1 cc of Depo-Medrol 80mg/mL and 4 cc of 0.2% ropivacaine was injected without resistance into the medial tibial femoral joint space. The patient tolerated the procedure.Recommend knee cortisone injection as patient would like to proceed with conservative treatment at this time. The risks and benefits of the procedure were reviewed with the patient and patient gave verbal consent to continue with the procedure. Procedure: performed by Dr. Barrera Using sterile technique the left knee was thoroughly prepped with alcohol, and approximately 1 cc of Depo-Medrol 80mg/mL and 4 cc of 0.2% ropivacaine was injected without resistance into the medial tibial femoral joint space. The patient tolerated the procedure. Office Procedures GNS Level of Care Nursing/Assessment Patient Status: Established Patient Nursing Assessment/Reassesment: Medication Reconciliation, Update PMH in EMR and Vital Signs Coordination of Care: Complex Care and Chronic Disease 1-5, Education Complex Pt/Fam, Consent,records obtained, informed consent, Results/Orders obtained and Staff clarify orders Established Patient Charge Established Patient Point Assignment: 95 Established Patient Point Charge: EP Level 3 (80-115) Surgical Proc/IM SQ injection Major Surgical Procedure: Yes (KNEE INJECTION) Medication Given Medication Given Medication Given: Yes Documented Dose Given: 1 Route: Infiitration Medication Given Medication Given Medication Given: Yes Documented Dose Given: 4 Route: Infiitration Office Meds methylprednisolone acetate 80 mg/mL suspension for injection Performing Provider: Jose Luis Barrera MD Performing Location: [facility] Administered by: Jose Luis Barrera MD on 10/26/24 15:49 Dose Route Admin Location Dispensed Lot Number Expiration Date [facility] [employer] Intern 80 mg intra-articular KNEE 1 mL [id number] 04/29/26 2416-7225-49 PH [facility]UPJ[facility] ropivacaine (PF) 2 mg/mL (0.2 %) injection solution Performing Provider: Jose Luis Barrera MD Performing Location: [facility] Administered by: Jose Luis Barrera MD on 10/26/24 15:49 Dose Route Admin Location Dispensed Lot Number Expiration Date [facility] Video Intern 20 mL Infiltration KNEE 20 mL [id number] 01/27/26 53663-262-98 [facility] Intake Visit Data Collection New Patient or Established: Established Patient (seen at [facility] within 3 years) Reason for Visit:: FOLLOW UP/REQ LEFT KNEE INJ Seen by Clinical Staff ONLY (RN/MA): No Verbal consent obtained for Telemed visit?: No Director Of Research And Development Required: No PCP or OBGYN visit in last 3 months: Yes Hx Now: No Do You Feel Safe at Home: Yes Authorities Contacted: N/A Questionairres Past Medical History Past Medical History Have you ever been diagnosed with any of the following: Neurological Problems Cerebrovascular Accident (CVA): No Transient Ischemic Attacks (TIA): No Dementia: No Alzheimer's Disease: No Parkinson's Disease: No Brain Tumor: No Meningitis: No Seizures: No Epilepsy: No Multiple Sclerosis: No Cerebral Palsy: No Amyotrophic Lateral Sclerosis (ALS/Brenda Gehrig's): No Guillain-[place] Syndrome: No Spina Bifida: No Paralysis: No Peripheral Neuropathy: No Us's Palsy: No Subdural Hematoma: No Migraine: No Head Trauma: No Spinal Cord Injury: No Traumatic Brain Injury: No Cardiology Problems Myocardial Infarction: No Cardiac Arrhythmia: No Atrial Fibrillation: No Angina: No Heart Murmur: No Coronary Artery Disease: No Atherosclerotic Heart Disease: No Peripheral Vascular Disease: No Hypercholesterolemia: Yes Aneurysm: No Congestive Heart Failure: No Congenital Heart Disease: No Valvular Heart Disease: No Rheumatic Fever: No Cardiomyopathy: No Edema: No Pericarditis: No Cellulitis: No Deep Vein Thrombosis: No Hypertension: Yes Hypotension: No Varicose Veins: Yes Respiratory Problems Chronic Obstructive Pulmonary Disease (COPD): No Asthma: Yes Bronchitis: No Emphysema: No Pneumonia: No Pulmonary Fibrosis: No Tuberculosis: No Pulmonary Embolism: No Pulmonary Edema: No Sleep Apnea: Yes (not using CPAP) CPAP Dependent: No Respiratory Aspiration: No Dyspnea: No Orthopnea: No Hx Cough: No Cough: No Wheezing: No Chest Deformities: No Smoking: No Smoking Cessation Counseling: No Smoking Exposure: No Tobacco Use: No Clubbing: No Exposure to Respiratory Irritants: No Intubation: No Stomache/Intestinal Problems Liver Cancer: No Hepatitis: No Cirrhosis: No Pancreatic Cancer: No Pancreatitis: No Celiac Disease: No Gall Bladder Disease: No Gastrointestinal Bleed: No Esophageal Varices: No Skinner's Esophagus: No Colitis: No Ulcerative Colitis: No Diverticulitis: No Diverticulosis: No Ulcer: No Colorectal Cancer: No Irritable Bowel: No Crohn's Disease: No Obstructive Bowel: No Hiatal Hernia: No Hemorrhoids: No Gastroesophageal Reflux Disease: Yes Polyps: No Obesity: Yes Genital/Urinary Problems Chronic Kidney Disease: No Renal Disease: No Kidney Stones: No Polycystic Kidney Disease: No Neurogenic Bladder: No Inguinal Hernia: No Dialysis: No Prostate Cancer: No Benign Prostatic Hyperplasia: No Reproductive Problems Breast Cancer: No Fibroids: No Genital Herpes: No Gonorrhea: No Syphilis: No Testicular Cancer: No Musculoskeletal Problems Muscular Dystrophy: No Myasthenia Gravis: No Marfan's Syndrome: No Bone Cancer: No Arthritis: Yes Rheumatoid Arthritis: No Osteoporosis: No Degenerative Disk Disease: No Gout: No Scoliosis: No Carpal Tunnel Syndrome: No Fibromyalgia: No Fractures: No Degenerative Joint Disease: No Osteomyelitis: No Poliovirus: No Head,Eye,Nose,Throat Problems Cataracts: No Glaucoma: No Blind: No Retinal Detachment: No Macular Degeneration: No Chronic Ear Infections: No Deafness: No Eye Prosthesis: No Endocrine Problems Diabetes Mellitus Type 1: No Diabetes Mellitus Type 2: Yes (not taking meds anymore lost 140 lbs) Hypoglycemia: No [place]'s Syndrome: No [place]'s Disease: No Hyperthyroidism: No Hypothyroidism: No Thyroid Cancer: No Parathyroid Disease: No Pituitary Disease: No Systemic Lupus Erythematosus: No Syndrome of Inappropriate Antidiuretic Hormone: No Adrenal Disease: No Graves' Disease: No Blood Problems Anemia: No Leukemia: No Hemophilia: No Thalassemia: No Sickle Cell Disease: No Clotting Problems: No Psychologic Problems Schizophrenia: No Recreational Drug Use: No Bipolar Disorder: No Depression: No Anxiety: No Behavior Problems: No Self-Mutilation: No Attention Deficit Disorder: No Attention Deficit Hyperactivity Disorder: No Depression: No Post Traumatic Stress Disorder: No Eating Disorder: No Other Problems Hospitalization: Yes (brain aneurysm) Shingles: No Falls: No Blood Transfusions: No Blood Transfusion Reaction: No Anesthesia Reactions: No Chemotherapy: No Radiation Therapy: No MRSA: No Chicken Pox: Yes Cancer: No Surgical History Angioplasty: No Appendectomy: No Bariatric Surgery: No Breast Surgery: No Cancer Surgery: No Carotid Endarterectomy: No Cholecystectomy: No Colectomy: No Colostomy: No Coronary Artery Bypass Graft: No Valve Replacement: No Herniorrhaphy: No Total Hip Replacement: No Total Knee Replacement: Yes (RIGHT) Pacemaker: No Sinus Surgery: No Splenectomy: No Thyroidectomy: No Ureter Stent: No Subjective Visit Visit for: follow up visit, post op #3 and knee Immunization / Flu Flu Vaccine in the Last 12 Months: No Flu Vaccine Exclusion Criteria: No Exclusion Criteria History of Present Illness Chief complaint: POST OP TKA Patient is a 54-year-old male status post right total knee replacement. He is doing well. He is 3 months postop. He reports his left knee hurts a lot more and he wants to get this injected today Personal History Occupation: DISABLED Red flag PMH: BMI BMI Counceling provided: Yes Pain Pain level (0-10): 3 Pain duration: ON AND OFF Pain location: anterior Pain quality: aching Pain timing: increases with activity and stairs Associated signs & symptoms: none Ambulatory data Ambulatory device: none Treatments Improvement with previous injections: No Improvement with PT: No Improvement with NSAIDS: no Review of Systems Review of Systems: All systems negative unless otherwise noted in HPI.
[2024-10-26 13:56] VITALS: BP 132/81; PULSE 75; RESP 18; TEMP 36.8; O2SAT 95; BMI 36.3
== END 2024-10-26 14:33 | disposition home or self-care (01) ==
LOC: HODSRG 13:50
PROVIDERS: PCP Physician Assistant; Referring Provider Physician Assistant; Supervising Provider Orthopaedic Surgery Adult Reconstructive Orthopaedic Surgery; Visit Provider Orthopaedic Surgery Adult Reconstructive Orthopaedic Surgery
DX: M17.11 Unilateral primary osteoarthritis, right knee (principal); M25.562 Pain in left knee; Z96.651 Presence of right artificial knee joint; I10 Essential (primary) hypertension; E78.00 Pure hypercholesterolemia, unspecified; K21.9 Gastro-esophageal reflux disease without esophagitis; E11.9 Type 2 diabetes mellitus without complications; E66.9 Obesity, unspecified; Z71.3 Dietary counseling and surveillance; Z68.36 Body mass index [BMI] 36.0-36.9, adult
CPT/HCPCS: 20610; 99213; J1010; J2795; G0463

== ENCOUNTER 2025-01-28 10:27 | Outpatient (AMB) | payer MEDICAID, SELFPAY ==
--- NOTE | 2025-01-28 10:38 | ORTHONT_ITS ---
Vital signs 01/28/25 10:39 Height 1.73 m Height Method Stated Weight 109.089 kg Weight Measurement Method Standing Scale BMI 36.4 BP 121/77 Blood Pressure Source Automatic Cuff Blood Pressure Location Left Upper Arm Position Sitting Respiration 18 Pulse 68 Pulse Source Monitor Temp 97.7 F Temp Source Temporal Artery Scan Pulse Oximetry (%) 96 Oxygen Delivery Method Room Air Med/Allergies Allergies & Medications Allergies Penicillins Allergy (Severe, Verified 01/28/25 10:39) Rash clindamycin Allergy (Mild, Verified 01/28/25 10:39) Rash morphine Allergy (Mild, Verified 01/28/25 10:39) itching, redness to site meloxicam Adverse Reaction (Intermediate, Verified 01/28/25 10:39) Chest Pain Medication Reconciliation albuterol sulfate 90 mcg/actuation aerosol inhaler (Proventil HFA) 2 puff inhalation Q6HR PRN SHORTNESS OF BREATH #0 inhalations 08/04/15 [History Confirmed 01/28/25] benazepril 20 mg tablet 20 mg PO BID 08/04/18 [History Confirmed 01/28/25] fluticasone furoate 200 mcg-vilanterol 25 mcg/dose inhalation powder (Breo Ellipta) 1 inh inhalation QDAY 08/04/18 [History Confirmed 01/28/25] pantoprazole 40 mg tablet,delayed release 40 mg PO QDAY 08/04/18 [History Confir med 01/28/25] carvedilol 6.25 mg tablet 6.25 mg PO BID 12/12/23 [History Confirmed 01/28/25] doxazosin 8 mg tablet 8 mg PO QDAY 12/12/23 [History Confirmed 01/28/25] atorvastatin 10 mg tablet 10 mg PO DAILY 07/07/24 [History Confirmed 01/28/25] doxycycline hyclate 100 mg tablet 100 mg PO BID #14 tabs 07/12/24 [Rx Confirmed 01/28/25] gabapentin 300 mg capsule 300 mg PO .qhs #30 caps 07/12/24 [Rx Confirmed 01/28/25] sennosides 8.6 mg-docusate sodium 50 mg tablet (Senna-S) 1 tab-cap PO QDAY #30 tabs 07/12/24 [Rx Confirmed 01/28/25] acetaminophen 500 mg tablet (Acetaminophen Extra Strength) 1,000 mg (2 x 500 mg) PO Q6H PRN pain #90 tabs 08/31/24 [Rx Confirmed 01/28/25] oxycodone 5 mg tablet 5 mg PO Q6H PRN pain #28 tabs 08/31/24 [Rx Confirmed 01/28/25] Exam Exam Patient is in no acute distress and is cooperative with the examination today. Breathing is nonlabored. Patient has a normal mood and affect. Bilateral extremities were evaluated and demonstrates sensation intact to light touch. Palpable pedal pulses are present. No significant edema is present. Bilateral hips were examined. The patient has no pain with log roll of the hips. Internal rotation to 30 degrees and external rotation to 30 degrees is painless. Negative FADIR. Left knee was examined today. The left knee is in reasonable alignment. Range of motion from 0-120 degrees. Knee is stable to varus and valgus as well as AP translation with <5mm. Patient has a negative McMurrays. There is no pain with patellofemoral compression and no crepitus noted. The knee is nontender to palpation. Right knee incision is clean dry intact. ROM is 0-110 X-rays from 08/31/2024 demonstrates a right total knee replacement in alignment position. The left knee demonstrates complete obliteration of the medial joint space Assessment and Plan Problem List (1) Arthritis of right knee: Status: Acute Plan Patient is doing well status post right total knee replacement. He is doing well status post right total knee replacement. He would like a cortisone injection of his left knee. He has [id number] arthritis and we discussed that this is reasonable Recommend knee cortisone injection as patient would like to proceed with conservative treatment at this time. The risks and benefits of the procedure were reviewed with the patient and patient gave verbal consent to continue with the procedure. Procedure: performed by Dr. Barrera Using sterile technique the left knee was thoroughly prepped with alcohol, and approximately 1 cc of Depo-Medrol 80mg/mL and 4 cc of 0.2% ropivacaine was injected without resistance into the medial tibial femoral joint space. The patient tolerated the procedure.Recommend knee cortisone injection as patient would like to proceed with conservative treatment at this time. The risks and benefits of the procedure were reviewed with the patient and patient gave verbal consent to continue with the procedure. Procedure: performed by Dr. Barrera Using sterile technique the left knee was thoroughly prepped with alcohol, and approximately 1 cc of Depo-Medrol 80mg/mL and 4 cc of 0.2% ropivacaine was injected without resistance into the medial tibial femoral joint space. The patient tolerated the procedure. Office Procedures GNS Level of Care Nursing/Assessment Patient Status: Established Patient Nursing Assessment/Reassesment: Medication Reconciliation, Update PMH in EMR and Vital Signs Coordination of Care: Complex Care and Chronic Disease 1-5, Education Complex Pt/Fam, Consent,records obtained, informed consent, Results/Orders obtained and Staff clarify orders Established Patient Charge Established Patient Point Assignment: 95 Established Patient Point Charge: EP Level 3 (80-115) Surgical Proc/IM SQ injection Minor Surgical Procedure: Yes (KNEE INJECTION) Medication Given Medication Given Medication Given: Yes Documented Dose Given: 1 Route: Infiitration Medication Given Medication Given Medication Given: Yes Documented Dose Given: 4 Route: Infiitration Office Meds methylprednisolone acetate 80 mg/mL suspension for injection Performing Provider: Jose Luis Barrera MD Performing Location: [facility] Administered by: Jose Luis Barrera MD on 01/28/25 10:42 Dose Route Admin Location Dispensed Lot Number Expiration Date Pack age [facility] [employer] 80 mg intra-articular 1 mL [id number] 10/27/26 [address]-6 [id number] [employer] ropivacaine (PF) 2 mg/mL (0.2 %) injection solution Performing Provider: Jose Luis Barrera MD Performing Location: [facility] Administered by: Jose Luis Barrera MD on 01/28/25 10:42 Dose Route Admin Location Dispensed Lot Number Expiration Date Pack age [facility] [employer] 20 mL Infiltration 20 mL [id number] 04/29/27 52987-417-79 [id number] [facility] Intake Visit Data Collection New Patient or Established: Established Patient (seen at [facility] within 3 years) Reason for Visit:: FOLLOW UP/REQ LEFT KNEE INJ Seen by Clinical Staff ONLY (RN/MA): No Verbal consent obtained for Telemed visit?: 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 PCP or OBGYN visit in last 3 months: Yes Hx Now: No Do You Feel Safe at Home: Yes Authorities Contacted: N/A Questionairres Past Medical History Past Medical History Have you ever been diagnosed with any of the following: Neurological Problems Cerebrovascular Accident (CVA): No Transient Ischemic Attacks (TIA): No Dementia: No Alzheimer's Disease: No Parkinson's Disease: No Brain Tumor: No Meningitis: No Seizures: No Epilepsy: No Multiple Sclerosis: No Cerebral Palsy: No Amyotrophic Lateral Sclerosis (ALS/Brenda Gehrig's): No Guillain-Prinsburg Syndrome: No Spina Bifida: No Paralysis: No Peripheral Neuropathy: No Us's Palsy: No Subdural Hematoma: No Migraine: No Head Trauma: No Spinal Cord Injury: No Traumatic Brain Injury: No Cardiology Problems Myocardial Infarction: No Cardiac Arrhythmia: No Atrial Fibrillation: No Angina: No Heart Murmur: No Coronary Artery Disease: No Atherosclerotic Heart Disease: No Peripheral Vascular Disease: No Hypercholesterolemia: Yes Aneurysm: No Congestive Heart Failure: No Congenital Heart Disease: No Valvular Heart Disease: No Rheumatic Fever: No Cardiomyopathy: No Edema: No Pericarditis: No Cellulitis: No Deep Vein Thrombosis: No Hypertension: Yes Hypotension: No Varicose Veins: Yes Respiratory Problems Chronic Obstructive Pulmonary Disease (COPD): No Asthma: Yes Bronchitis: No Emphysema: No Pneumonia: No Pulmonary Fibrosis: No Tuberculosis: No Pulmonary Embolism: No Pulmonary Edema: No Sleep Apnea: Yes (not using CPAP) CPAP Dependent: No Respiratory Aspiration: No Dyspnea: No Orthopnea: No Hx Cough: No Cough: No Wheezing: No Chest Deformities: No Smoking: No Smoking Cessation Counseling: No Smoking Exposure: No Tobacco Use: No Clubbing: No Exposure to Respiratory Irritants: No Intubation: No Stomache/Intestinal Problems Liver Cancer: No Hepatitis: No Cirrhosis: No Pancreatic Cancer: No Pancreatitis: No Celiac Disease: No Gall Bladder Disease: No Gastrointestinal Bleed: No Esophageal Varices: No Skinner's Esophagus: No Colitis: No Ulcerative Colitis: No Diverticulitis: No Diverticulosis: No Ulcer: No Colorectal Cancer: No Irritable Bowel: No Crohn's Disease: No Obstructive Bowel: No Hiatal Hernia: No Hemorrhoids: No Gastroesophageal Reflux Disease: Yes Polyps: No Obesity: Yes Genital/Urinary Problems Chronic Kidney Disease: No Renal Disease: No Kidney Stones: No Polycystic Kidney Disease: No Neurogenic Bladder: No Inguinal Hernia: No Dialysis: No Prostate Cancer: No Benign Prostatic Hyperplasia: No Reproductive Problems Breast Cancer: No Fibroids: No Genital Herpes: No Gonorrhea: No Syphilis: No Testicular Cancer: No Musculoskeletal Problems Muscular Dystrophy: No Myasthenia Gravis: No Marfan's Syndrome: No Bone Cancer: No Arthritis: Yes Rheumatoid Arthritis: No Osteoporosis: No Degenerative Disk Disease: No Gout: No Scoliosis: No Carpal Tunnel Syndrome: No Fibromyalgia: No Fractures: No Degenerative Joint Disease: No Osteomyelitis: No Poliovirus: No Head,Eye,Nose,Throat Problems Cataracts: No Glaucoma: No Blind: No Retinal Detachment: No Macular Degeneration: No Chronic Ear Infections: No Deafness: No Eye Prosthesis: No Endocrine Problems Diabetes Mellitus Type 1: No Diabetes Mellitus Type 2: Yes (not taking meds anymore lost 140 lbs) Hypoglycemia: No Iroquois's Syndrome: No Berks's Disease: No Hyperthyroidism: No Hypothyroidism: No Thyroid Cancer: No Parathyroid Disease: No Pituitary Disease: No Systemic Lupus Erythematosus: No Syndrome of Inappropriate Antidiuretic Hormone: No Adrenal Disease: No Graves' Disease: No Blood Problems Anemia: No Leukemia: No Hemophilia: No Thalassemia: No Sickle Cell Disease: No Clotting Problems: No Psychologic Problems Schizophrenia: No Recreational Drug Use: No Bipolar Disorder: No Depression: No Anxiety: No Behavior Problems: No Self-Mutilation: No Attention Deficit Disorder: No Attention Deficit Hyperactivity Disorder: No Depression: No Post Traumatic Stress Disorder: No Eating Disorder: No Other Problems Hospitalization: Yes (brain aneurysm) Shingles: No Falls: No Blood Transfusions: No Blood Transfusion Reaction: No Anesthesia Reactions: No Chemotherapy: No Radiation Therapy: No MRSA: No Chicken Pox: Yes Cancer: No Surgical History Angioplasty: No Appendectomy: No Bariatric Surgery: No Breast Surgery: No Cancer Surgery: No Carotid Endarterectomy: No Cholecystectomy: No Colectomy: No Colostomy: No Coronary Artery Bypass Graft: No Valve Replacement: No Herniorrhaphy: No Total Hip Replacement: No Total Knee Replacement: Yes (RIGHT) Pacemaker: No Sinus Surgery: No Splenectomy: No Thyroidectomy: No Ureter Stent: No Subjective Visit Visit for: follow up visit, knee and injections Immunization / Flu Flu Vaccine in the Last 12 Months: No Flu Vaccine Exclusion Criteria: No Exclusion Criteria History of Present Illness Chief complaint: LEFT KNEE INJ Patient is a 54-year-old male status post right total knee replacement. He is doing well. He is 6 months postop. He reports his left knee hurts a lot more and he wants to get this injected today Personal History Occupation: DISABLED Red flag PMH: BMI BMI Counceling provided: Yes Pain Pain level (0-10): 3 Pain duration: ON AND OFF Pain location: anterior Pain quality: aching Pain timing: increases with activity and stairs Associated signs & symptoms: none Ambulatory data Ambulatory device: none Treatments Improvement with previous injections: No Improvement with PT: No Improvement with NSAIDS: no Review of Systems Review of Systems: All systems negative unless otherwise noted in HPI.
[2025-01-28 10:39] VITALS: BP 121/77; PULSE 68; RESP 18; TEMP 36.5; O2SAT 96; BMI 36.4
== END 2025-01-28 10:59 | disposition home or self-care (01) ==
PROVIDERS: PCP Physician Assistant; Referring Provider Physician Assistant; Supervising Provider Orthopaedic Surgery Adult Reconstructive Orthopaedic Surgery; Visit Provider Orthopaedic Surgery Adult Reconstructive Orthopaedic Surgery
DX: Z47.1 Aftercare following joint replacement surgery (principal); Z96.651 Presence of right artificial knee joint; M17.12 Unilateral primary osteoarthritis, left knee; I10 Essential (primary) hypertension; E11.9 Type 2 diabetes mellitus without complications; E66.9 Obesity, unspecified; Z68.36 Body mass index [BMI] 36.0-36.9, adult
CPT/HCPCS: 20610; 99213; J1010; J2795; G0463